=== PATIENT | female | born 1980 | race Caucasian/White ===

== ENCOUNTER 2016-11-17 07:39 | Emergency (ER) | payer MEDICAID ==
[2016-11-17 07:52] VITALS: BP 143/83
--- NOTE | 2016-11-17 08:11 | EDM.PDOC ---
[id number] 4d DIZZY NAUSA Time Seen by Provider: 11/17/16 08:10 Source of Information: Reports: Patient History Limitations: Reports: No Limitations - History of Present Illness INITIAL COMMENTS - FREE TEXT/NARRATIVE: 36-year-old female with a sudden onset of vertigo yesterday, did improve yesterday afternoon but this morning it was worse again. She does not feel lightheaded, she has no palpitations, no fever or headache. No recent trauma. She did have an episode similar to this only worse several years ago. Her symptoms are unsteadiness, a sensation of spinning or being off balance and mild nausea. No vomiting. Onset: Sudden (Sudden onset yesterday, waxing and waning since) Severity: Mild Associated Symptoms: Reports: Nausea/Vomiting. 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: Musculoskeletal History: Reports: Fracture, Other (See Below) Other Musculoskeletal History: facial Psychiatric History: Reports: Anxiety, OCD Endocrine/Metabolic History: Reports: Hypothyroidism - Past Surgical History HEENT Surgical History: Reports: Adenoidectomy, Tonsillectomy GI Surgical History: Reports: Appendectomy, Cholecystectomy Endocrine Surgical History: Reports: None Musculoskeletal Surgical History: Reports: Other (See Below) Other Musculoskeletal Surgeries/Procedures:: plate and screw for facial fracture Social & Family History - Family History Cardiac: Reports: Other (See Below) Other Cardiac Family History: sister with PIH - Tobacco Use Smoking Status *Q: Never Smoker Second Hand Smoke Exposure: No - Caffeine Use Caffeine Use: Reports: Soda - Alcohol Use Days Per Week of Alcohol Use: 0 - Recreational Drug Use Recreational Drug Use: No ED ROS GENERAL - Review of Systems Review Of Systems: See Below Constitutional: Reports: Malaise. Denies: Fever, Chills, Weakness HEENT: Denies: Ear Pain, Throat Pain, Vision Change Respiratory: Denies: Shortness of Breath, Cough Cardiovascular: Denies: Chest Pain, Palpitations Endocrine: Denies: Fatigue GI/Abdominal: Reports: Nausea. Denies: Vomiting : Reports: No Symptoms Skin: Reports: No Symptoms Neurological: Reports: Dizziness (Vertigo). Denies: Headache ED EXAM, GENERAL - Physical Exam Exam: See Below Exam Limited By: No Limitations General Appearance: Alert, No Apparent Distress Eye Exam: Bilateral Eye: Normal Inspection, Other (No reproducible nystagmus) Ears: Normal External Exam, Normal TMs Head: Atraumatic Neck: Normal Inspection Respiratory/Chest: Lungs Clear Cardiovascular: Regular Rate, Rhythm. No: Extra Beats Neurological: Alert, Oriented, No Motor/Sensory Deficits, Other (Romberg is negative, no pronator drift) Psychiatric: Normal Affect, Normal Mood Skin Exam: Warm, Dry Course - Vital Signs Last Recorded V/S: Last Vital Signs Temp 97.0 F 11/17/16 07:57 Pulse 90 11/17/16 07:57 Resp 12 11/17/16 07:57 BP 143/83 H 11/17/16 07:57 Pulse Ox 99 11/17/16 07:57 - Re-Assessments/Exams Free Text/Narrative Re-Assessment/Exam: 11/17/16 08:38 This patient seems to be struggling with transient intermittent vestibular neuritis. She'll be supplied with meclizine to take up to 3 times daily. She may also take a dose of prednisone for 1-3 days which she has from a previous prescription. She'll return if worsening such as fever, increased nausea, headache, or other concerns. Departure - Departure Time of Disposition: 09:02 Disposition: Home, Self-Care 01 Condition: good Clinical Impression: Acute vestibular neuritis Qualifiers: Laterality: unspecified laterality Qualified Code(s): H81.20 - Vestibular neuronitis, unspecified ear - Discharge Information Instructions: Labyrinthitis, [id number] Referrals: Amber Patel CNM [Primary Care Provider] - Forms: ED Department Discharge Care Plan Goals: Activity as tolerated. Use meclizine up to 3 times daily, and add 60 mg of prednisone with food for 1 to 3 days if not improving satisfactorily with meclizine. Return anytime if worsening such as fever, headache, increased nausea and vomiting or other concerns.
== END 2016-11-17 08:50 | disposition home or self-care (01) ==
LOC: JP.ED 07:39
DX: H81.20 Vestibular neuronitis, unspecified ear (principal); F41.9 Anxiety disorder, unspecified; E03.9 Hypothyroidism, unspecified; Z98.890 Other specified postprocedural states; Z90.49 Acquired absence of other specified parts of digestive tract; Z88.1 Allergy status to other antibiotic agents; Z79.899 Other long term (current) drug therapy
CPT/HCPCS: 99283

== ENCOUNTER 2018-02-07 20:36 | Emergency (ER) | payer MEDICAID ==
[2018-02-07 20:51] VITALS: BP 155/94
[2018-02-07] MEDS ORDERED: Acetaminophen/oxyCODONE 325-5 MG Tab PO ONE (21:06)
[2018-02-07] MEDS ORDERED: Ketorolac 60 MG/2 ML SDV IM ONE (21:09)
--- NOTE | 2018-02-07 21:11 | EDM.PDOC ---
ED HPI GENERAL MEDICAL PROBLEM - General Chief Complaint: Genitourinary Problem Stated Complaint: POSSIBLE KIDNEY INFECTION Time Seen by Provider: 02/07/18 21:00 Source of Information: Reports: Patient, Old Records, RN History Limitations: Reports: No Limitations - History of Present Illness INITIAL COMMENTS - FREE TEXT/NARRATIVE: 37 yo female was seen in the clinic earlier today and dx with a UTI and placed on Bactrim DS. Comes now to the ER with flank pain and a concern that her UTI is worsening. No fever. UA today had mostly RBC's present on review of clinic notes. Has a pHx of kidney stones. Onset: Today Onset Date: 02/07/18 Duration: Hour(s):, Getting Worse Location: Reports: Back (R flank) Quality: Reports: Stabbing Severity: Moderate Improves with: Reports: None Worsens with: Reports: Other (unknown) Context: Reports: Other (Hx of kidney stones on right) Associated Symptoms: Reports: Other (urinary frequency). 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 (see below) (Bactrim DS) right flank Pain Score (Numeric/FACES): 6 - Related Data Allergies Allergy/AdvReac Type Severity Reaction Status Date / Time azithromycin Allergy Hives Verified 02/07/18 20:54 [From Zithromax Z-Jl] Home Meds: Home Meds Acetaminophen [Tylenol] 650 mg PO Q4H PRN #0 tablet 04/01/16 [Rx] FLUoxetine [PROzac] 40 mg PO DAILY cap 04/01/16 [Rx] ALPRAZolam [Alprazolam] 1 tab PO TID PRN 02/07/18 [History] Desog-E.Estradiol/E.Estradiol [Viorele 28 Day Tablet] 1 tab PO DAILY 02/07/18 [ History] Sulfamethoxazole/Trimethoprim [Septra DS] 1 tab PO BID 02/07/18 [History] hydroCHLOROthiazide [Hydrochlorothiazide] 25 mg PO DAILY 02/07/18 [History] Past Medical History Cardiovascular History: Reports: Hypertension Genitourinary History: Reports: Pyelonephritis, 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 Calculus 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: Musculoskeletal History: Reports: Fracture, Other (See Below) Other Musculoskeletal History: facial Psychiatric History: Reports: Anxiety, OCD Endocrine/Metabolic History: Reports: Hypothyroidism - Past Surgical History HEENT Surgical History: Reports: Adenoidectomy, Tonsillectomy GI Surgical History: Reports: Appendectomy, Cholecystectomy Female Surgical History: Reports: Section Endocrine Surgical History: Reports: None Musculoskeletal Surgical History: Reports: Other (See Below) Other Musculoskeletal Surgeries/Procedures:: plate and screw for facial fracture Social & Family History - Family History Cardiac: Reports: Other (See Below) Other Cardiac Family History: sister with PIH - Tobacco Use Smoking Status *Q: Never Smoker - Caffeine Use Caffeine Use: Reports: Soda - Recreational Drug Use Recreational Drug Use: No ED ROS GENERAL - Review of Systems Review Of Systems: See Below Constitutional: Reports: No Symptoms HEENT: Reports: No Symptoms Respiratory: Reports: No Symptoms Cardiovascular: Reports: No Symptoms GI/Abdominal: Reports: Abdominal Pain (RLQ pressure) : Reports: Dysuria, Flank Pain (Right), Frequency Musculoskeletal: Reports: No Symptoms Skin: Reports: No Symptoms ED EXAM, RENAL/ - Physical Exam Exam: See Below Exam Limited By: No Limitations General Appearance: Alert, WD/WN, Mild Distress Eye Exam: Bilateral Eye: Normal Inspection Ears: Hearing Grossly Normal Nose: Normal Inspection, Normal Mucosa, No Blood Throat/Mouth: Normal Inspection, Normal Oropharynx, No Airway Compromise Head: Atraumatic, Normocephalic Neck: Normal Inspection Respiratory/Chest: No Respiratory Distress, Lungs Clear, Normal Breath Sounds, No Accessory Muscle Use Cardiovascular: Regular Rate, Rhythm GI/Abdominal: Normal Bowel Sounds, Soft, No Distention, Tender (mild RLQ tenderness) Back Exam: Normal Inspection, CVA Tenderness (R). No: CVA Tenderness (L), Decreased Range of Motion, Muscle Spasm, Paraspinal Tenderness, Vertebral Tenderness Extremities: Normal Inspection, Normal Range of Motion, Non-Tender, No Pedal Edema Neurological: Alert, Oriented, CN II-XII Intact, Normal Cognition, No Motor/ Sensory Deficits Psychiatric: Normal Affect, Normal Mood Skin Exam: Warm, Dry, Intact, Normal Color, No Rash Course - Vital Signs Last Recorded V/S: Last Vital Signs Temp 36.2 C 02/07/18 20:56 Pulse 91 02/07/18 20:56 Resp 16 02/07/18 20:56 BP 155/94 H 02/07/18 20:56 Pulse Ox 97 02/07/18 20:56 - Orders/Labs/Meds Orders: Active Orders 24 hr Category Date Time Status Abdomen Pelvis wo Cont [CT] Stat Exams 02/07/18 21:10 Taken Labs: Laboratory Tests 02/07/18 Range/Units 21:06 WBC 6.9 (4.5-11.0) K/uL RBC 4.32 (3.30-5.50) M/uL Hgb 12.7 (12.0-15.0) g/dL Hct 37.5 (36.0-48.0) % MCV 87 (80-98) fL MCH 29 (27-31) pg MCHC 34 (32-36) % Plt Count 342 (150-400) K/uL Meds: Medications Discontinued Medications Generic Name Dose Route Start Last Admin Trade Name Vicky PRN Reason Stop Dose Admin Ketorolac Tromethamine 60 mg 02/07/18 21:09 02/07/18 21:38 Toradol IM 02/07/18 21:10 60 mg ONETIME ONE Administration Oxycodone/Acetaminophen 1 tab 02/07/18 21:06 02/07/18 21:37 Percocet 325-5 Mg PO 02/07/18 21:07 1 tab ONETIME ONE Administration - Radiology Interpretation Free Text/Narrative:: 5 mm stone seen at the [facility] per CT abd/pelvis. CT Results Date: 02/07/18 CT Results Time: 21:50 Departure - Departure Time of Disposition: 22:05 Disposition: Home, Self-Care 01 Condition: Good Clinical Impression: Ureterolithiasis Clinical Impression: (Ruled Out): Kidney stone - Discharge Information *PRESCRIPTION DRUG MONITORING PROGRAM REVIEWED*: No *COPY OF PRESCRIPTION DRUG MONITORING REPORT IN PATIENT MILDRED: No Instructions: Kidney Stones, [id number] Referrals: Amber Patel CNM [Primary Care Provider] - Forms: ED Department Discharge Additional Instructions: Strain your urine until you pass your stone, turn it in to your provider for stone analysis. Drink ample fluids. Take ibuprofen 600 mg every 6 hrs with food starting after 3 am. Take Percocet for added relief. Take Zofran as needed for nausea. Return here as needed. - My Orders Last 24 Hours: My Active Orders 02/07/18 21:10 Abdomen Pelvis wo Cont [CT] Stat - Assessment/Plan Last 24 Hours: My Active Orders 02/07/18 21:10 Abdomen Pelvis wo Cont [CT] Stat
== END 2018-02-07 22:25 | disposition home or self-care (01) ==
LOC: JP.ED 20:36
DX: N13.2 Hydronephrosis with renal and ureteral calculous obstruction (principal); I10 Essential (primary) hypertension; Z88.1 Allergy status to other antibiotic agents
CPT/HCPCS: 36415; 74176; 85027; 96372; 99284; A9270; J1885

== ENCOUNTER 2023-02-23 21:10 | Emergency (ER) | payer MEDICAID ==
[2023-02-23] MEDS ORDERED: Acetaminophen 325 MG Tab PO ONE (22:26)
[2023-02-23 22:54] LABS: APPEARANCE,URINE CLEAR (CLEAR); BILIRUBIN,URINE NEGATIVE (NEGATIVE); COLOR,URINE YELLOW (YELLOW); GLUCOSE,URINE NEGATIVE (NEGATIVE); KETONES,URINE NEGATIVE (NEGATIVE); LEUKOCYTE ESTERASE,URINE NEGATIVE (NEGATIVE); NITRITE,URINE NEGATIVE (NEGATIVE); OCCULT BLOOD,URINE MODERATE (NEGATIVE); PH,URINE 6.5 (5.0-8.0); PROTEIN,URINE NEGATIVE (NEGATIVE); UROBILINOGEN,URINE 0.2 EU/dL (0.2-1.0)
[2023-02-23 22:56] LABS: AMORPHOUS SEDIMENT,URINE NOT SEEN; BACTERIA,URINE FEW; EPITHELIAL CELLS,URINE FEW; MUCUS,URINE NOT SEEN; RBC,URINE 0-5 (0-5); WBC,URINE 0-5 (0-5)
[2023-02-23 23:45] VITALS: BP 134/84; PULSE 111
== END 2023-02-24 00:04 | disposition home or self-care (01) ==
LOC: JP.ED 21:10
DX: B34.9 Viral infection, unspecified (principal); Z86.16 Personal history of COVID-19; I10 Essential (primary) hypertension; Z20.822 Contact with and (suspected) exposure to COVID-19; Z88.1 Allergy status to other antibiotic agents; Z79.899 Other long term (current) drug therapy
CPT/HCPCS: 81001; 87635; 87651; 99283; A9270; U0002

== ENCOUNTER 2024-09-19 22:22 | Emergency (ER) | payer MEDICAID ==
[2024-09-19 23:12] VITALS: BP 141/80; PULSE 107
[2024-09-19] MEDS ORDERED: Sodium Chloride 0.9% 10 ML Syringe FLUSH PRN (23:37)
[2024-09-19] MEDS: Sodium Chloride 0.9% 1,000 ML IV SCH (23:51)
[2024-09-19] MEDS: Ondansetron 4 MG/2 ML SDV IVPUSH ONE (23:52)
[2024-09-19] MEDS: Ketorolac 15 MG/ML SDV IVPUSH ONE (23:52)
[2024-09-19 23:58] LABS: APPEARANCE,URINE SLIGHTLY CLOUDY (CLEAR); BILIRUBIN,URINE SMALL (NEGATIVE); GLUCOSE,URINE NEGATIVE (NEGATIVE); KETONES,URINE NEGATIVE (NEGATIVE); LEUKOCYTE ESTERASE,URINE NEGATIVE (NEGATIVE); NITRITE,URINE NEGATIVE (NEGATIVE); OCCULT BLOOD,URINE SMALL (NEGATIVE); PH,URINE 5.5 (5.0-8.0); PROTEIN,URINE 30 mg/dL (NEGATIVE)
[2024-09-19 23:59] LABS: BASOPHILS ABSOLUTE AUTO 0.01 K/uL (0.00-0.10); BASOPHILS PERCENT AUTO 0.1 % (0.1-1.3); EOSINOPHILS ABSOLUTE AUTO 0.03 K/uL (0.00-0.40); EOSINOPHILS PERCENT AUTO 0.3 % (0.0-5.4); HEMATOCRIT 42.4 % (34.3-46.0); IMMATURE GRAN ABSOLUTE AUTO 0.18 K/uL (0.00-0.23); IMMATURE GRAN PERCENT AUTO 1.9 % (0.0-0.7); LYMPHOCYTES ABSOLUTE AUTO 0.71 K/uL (0.8-3.3); LYMPHOCYTES PERCENT AUTO 7.4 % (11.4-47.7); MEAN CORPUSCULAR HEMOGLOBIN 31.1 pg (31.6-35.5); MEAN CORPUSCULAR HGB CONC 35.4 g/dL (31.6-35.5); MONOCYTES ABSOLUTE AUTO 0.61 K/uL (0.20-0.90); MONOCYTES PERCENT AUTO 6.4 % (3.3-12.6); NEUTROPHILS ABSOLUTE AUTO 8.05 K/uL (1.0-7.6); NEUTROPHILS PERCENT AUTO 83.9 % (40.0-78.1); PLATELET COUNT,PLT 269 K/uL (130-375); RED BLOOD CELL COUNT 4.82 M/uL (3.77-5.24); WHITE BLOOD CELL COUNT,WBC 9.6 K/uL (3.2-11.0)
[2024-09-20 00:10] LABS: ALANINE AMINOTRANSFERASE,ALT 39 U/L (12-78); ALBUMIN 3.7 g/dL (3.4-5.0); ALKALINE PHOSPHATASE 50 U/L (46-116); ASPARTATE AMNIOTRANSFERASE,AST 43 U/L (15-37); BILIRUBIN TOTAL 1.8 mg/dL (0.2-1.0); BLOOD UREA NITROGEN,BUN 20 mg/dL (7-18); CALCIUM 8.9 mg/dL (8.5-10.1); CARBON DIOXIDE,CO2 24 mmol/L (21-32); CHLORIDE,CL 98 mmol/L (100-108); CREATININE 0.8 mg/dL (0.6-1.0); EST CRCL DRUG DOSING (CG) 94.76 mL/min; ESTIMATED GFR 94 mL/min (>60); GLUCOSE RANDOM 111 mg/dL (74-106); POTASSIUM,K 3.5 mmol/L (3.6-5.2); PROTEIN TOTAL,TP 7.3 g/dL (6.4-8.2); SODIUM,NA 135 mmol/L (140-148)
[2024-09-20 00:12] LABS: ANION GAP 16.5 mmol/L (5.0-14.0)
[2024-09-20 00:13] LABS: AMORPHOUS SEDIMENT,URINE NOT SEEN; BACTERIA,URINE FEW; COLOR,URINE OTHER (YELLOW); EPITHELIAL CELLS,URINE FEW; MUCUS,URINE FEW; WBC,URINE 0-5 (0-5)
== END 2024-09-20 02:07 | disposition home or self-care (01) ==
LOC: JP.ED 22:22
DX: R11.2 Nausea with vomiting, unspecified (principal); R19.7 Diarrhea, unspecified; R10.13 Epigastric pain; I10 Essential (primary) hypertension; Z86.16 Personal history of COVID-19; Z90.49 Acquired absence of other specified parts of digestive tract; Z88.1 Allergy status to other antibiotic agents; Z79.899 Other long term (current) drug therapy
CPT/HCPCS: 36415; 80053; 81001; 81025; 83690; 84484; 85025; 93005; 93010; 96361; 96374; 96375; 99284; J1885; J2405; J7030